=== PATIENT | female | born 1970 | race African-American/Black ===

== ENCOUNTER 2017-02-10 15:05 | Emergency (ER) | payer BC ==
--- NOTE | ~2017-02-10 | CR63 ---
[facility]. [facility] A Service of [facility] & [facility] RADIOLOGY TEXT RESULTS PATIENT: KAE DE LEON LOCATION: SED : 74 UNIT #: [id number] AGE: [address]: Sal Parkinson MD SEX: F ORDER DR: [id number] [place] [id number] E MR#: [id number] Acc #: [id number] NAME: KAE DE LEON : 1970 SEX: F STUDY DATE/TIME: 02/10/2017 15:03 UNIT: SED ROOM: STUDY DESCRIPTION: CR Chest 2 View Attending Physician: Sal Pariknson M.D. Ordering Physician: Sal Parkinson M.D. Primary Care Physician: Primary Care Physician No MEDICAL IMAGING REPORT This report is preliminary unless electronic signature is present. EXAM PA and lateral chest 2 views, 02/10/2017 COMPARISON 09/18/2016 CLINICAL HISTORY Cough for 2 weeks. FINDINGS Redemonstrated right aortic arch. There is a subclavian vascular stent in place. There is no effusion or pneumothorax or consolidation or other acute abnormality. Dictated by... Cristian Scott M.D. THIS IS AN ELECTRONICALLY VERIFIED REPORT Cristian Scott M.D. at 02/13/2017 3:48 PM TEV/ljd TD: 02/10/2017 22:17 JOB #: [id number] MEDICAL IMAGING REPORT
[~2017-02-10 15:05] MED LIST: COUMADIN PO
[2017-02-10] MEDS ORDERED: PROTONIX (15:11)
[2017-02-10] MEDS ORDERED: TRAZODONE PO (15:11)
[2017-02-10] MEDS ORDERED: LORTAB 5-325 M1 EACH (15:11)
[2017-02-10] MEDS ORDERED: FLEXERIL (15:11)
[2017-02-10 15:18] LABS: INFLUENZA A NEG (NEG); INFLUENZA B NEG (NEG)
== END 2017-02-10 16:52 | disposition home or self-care (01) ==
LOC: SED 15:05
PROVIDERS: Emergency Medicine
DX: J06.9 Acute upper respiratory infection, unspecified (principal); Z90.710 Acquired absence of both cervix and uterus; N18.9 Chronic kidney disease, unspecified
CPT/HCPCS: 71020; 87804; 99283